=== PATIENT | female | born 1990 | race Caucasian/White ===

== ENCOUNTER 2017-03-04 14:35 | Emergency (ER) | payer BC ==
[2017-03-04 14:56] VITALS: BP 140/87
[2017-03-04] MEDS ORDERED: Ondansetron 4 MG Tab.DIS PO ONE (16:19)
[2017-03-04] MEDS ORDERED: Acetaminophen 325 MG Tab PO ONE (16:54)
--- NOTE | 2017-03-04 16:56 | EDM.PDOC ---
ED HPI GENERAL MEDICAL PROBLEM - General Chief Complaint: SKEIN TIER Problem Stated Complaint: CONTRACTIONS, 19-1/2 WKS PREG Time Seen by Provider: 03/04/17 16:14 Source of Information: Reports: Patient, Family, RN Notes Reviewed History Limitations: Reports: No Limitations - History of Present Illness INITIAL COMMENTS - FREE TEXT/NARRATIVE: 26-year-old female 1 para 0 presents emergency department day complaint of contractions she is estimated 19 weeks 4 days intrauterine she denies any vaginal bleeding no discharge she states the cramping abdominal discomfort happens anywhere between 8-10 minutes she does admit to not drinking well today has not taken any pain medications Abdomen Pain Score (Numeric/FACES): 7 - Related Data Allergies Allergy/AdvReac Type Severity Reaction Status Date / Time Penicillins Allergy Hives Verified 03/04/17 15:16 Home Meds: Home Meds Albuterol [Ventolin HFA] 2 puff .ROUTE ASDIRECTED 11/08/16 [History] Fluticasone/Salmeterol [Advair Diskus 100-50] 1 puff INH DAILY 11/08/16 [History ] Vit37/Iron/Folic Acid [Prenata] 1 tab PO DAILY 03/04/17 [History] Past Medical History Respiratory History: Reports: Asthma SKEIN TIER History: Reports: Other OB/BYN History: EDC July 27 2017 Social & Family History - Tobacco Use Smoking Status *Q: Never Smoker - Caffeine Use Caffeine Use: Reports: Soda - Recreational Drug Use Recreational Drug Use: No ED ROS GENERAL - Review of Systems Review Of Systems: See Below Constitutional: Reports: No Symptoms Respiratory: Reports: No Symptoms Cardiovascular: Reports: No Symptoms GI/Abdominal: Reports: Abdominal Pain, Nausea, Vomiting : Reports: No Symptoms Musculoskeletal: Reports: No Symptoms Skin: Reports: No Symptoms Neurological: Reports: No Symptoms ED EXAM - Physical Exam Exam: See Below Exam Limited By: No Limitations General Appearance: Alert, WD/WN, No Apparent Distress Respiratory/Chest: No Respiratory Distress, Lungs Clear, Normal Breath Sounds, No Accessory Muscle Use Cardiovascular: Regular Rate, Rhythm, No Murmur GI/Abdominal: Soft, Non-Tender Heart Tones: Present Heart Tones per Min: 140 Movement: Active Back Exam: No: CVA Tenderness (R), CVA Tenderness (L) Course - Vital Signs Last Recorded V/S: Last Vital Signs Temp 97.7 F 03/04/17 15:15 Pulse 100 03/04/17 15:15 Resp 16 03/04/17 15:15 BP 140/87 03/04/17 15:15 Pulse Ox 98 03/04/17 15:15 - Orders/Labs/Meds Orders: Active Orders 24 hr Category Date Time Status OB Ltd 1 or More Fetus [US] Stat Exams 03/04/17 17:56 Ordered CULTURE URINE [RM] Urgent Lab 03/04/17 18:14 Ordered Labs: Laboratory Tests 03/04/17 Range/Units 17:00 Urine Color Yellow Urine Appearance Cloudy Urine pH 6.0 (4.5-8.0) Ur Specific [place] 1.020 (1.008-1.030) Urine Protein Negative (NEGATIVE) mg/dL Urine Glucose (UA) Normal (NEGATIVE) mg/dL Urine Ketones 15 H (NEGATIVE) mg/dL Urine Occult Blood Negative (NEGATIVE) Urine Nitrite Negative (NEGATIVE) Urine Bilirubin Negative (NEGATIVE) Urine Urobilinogen Normal (NORMAL) mg/dL Ur Leukocyte Esterase Negative (NEGATIVE) Urine RBC 0-5 (0-5) Urine WBC 5-10 H (0-5) Ur Epithelial Cells Moderate Amorphous Sediment Few Urine Bacteria Few Urine Mucus Moderate Urine Other See note Urinalysis Comment Clue cells seen Meds: Medications Discontinued Medications Generic Name Dose Route Start Last Admin Trade Name Moshe PRN Reason Stop Dose Admin Acetaminophen 650 mg 03/04/17 16:54 03/04/17 16:59 Tylenol PO 03/04/17 16:55 650 mg NOW ONE Administration Ondansetron HCl 4 mg 03/04/17 16:19 03/04/17 16:26 Zofran Odt PO 03/04/17 16:20 4 mg ONETIME ONE Administration Departure - Departure Time of Disposition: 18:16 Disposition: Home, Self-Care 01 Condition: good Clinical Impression: Urinary tract infection Qualifiers: Urinary tract infection type: acute cystitis Hematuria presence: without hematuria Qualified Code(s): N30.00 - Acute cystitis without hematuria - Discharge Information Forms: ED Department Discharge Additional Instructions: Take full course of antibiotics, continue to push fluids, followup with your OB provider next week, call return to the emergency department worsening of symptoms - My Orders Last 24 Hours: My Active Orders 03/04/17 17:56 OB Ltd 1 or More Fetus [US] Stat 03/04/17 18:14 CULTURE URINE [RM] Urgent - Assessment/Plan Last 24 Hours: My Active Orders 03/04/17 17:56 OB Ltd 1 or More Fetus [US] Stat 03/04/17 18:14 CULTURE URINE [RM] Urgent Plan: Assessment Acuity = acute Site and laterality = urinary tract infection complicated patient who is 19 weeks 6 days intrauterine 1 para 0 Etiology = suspicious for bacterial cause Manifestations = intermittent uterine contractions Location of injury = home Lab values = urinalysis reveals 5-10 WBCs consistent with pyuria specific gravity is 1.02 consistent with intravascular volume depletion cultures pending ultrasound reveals cervical length 4.1 cm Plan Discussed case with OB on-call recommend follow up with her regular provider next week full course of antibiotics push fluids Patient was in agreement with the plan all questions were answered, they were instructed to return to the emergency department or call for worsening symptoms. This note was dictated using [employer] voice recognition software please call with any questions.
--- NOTE | 2017-03-05 09:09 | US ---
OB Transvaginal HISTORY: contractions FINDINGS: Limited transabdominal study was obtained to assess cervical length. The cervix is closed measuring 4.2 cm in length. There is no funneling of the internal os. No significant change in cervi kale length is seen with fundal pressure. IMPRESSION: Cervical length as above. Report was given to Dr. Officer at the time of the exam.
== END 2017-03-04 18:31 | disposition home or self-care (01) ==
LOC: JP.ED 14:35
DX: N30.00 Acute cystitis without hematuria (principal); J45.909 Unspecified asthma, uncomplicated; Z88.0 Allergy status to penicillin; Z79.899 Other long term (current) drug therapy
CPT/HCPCS: 76817; 81001; 87086; 99284; A9270

== ENCOUNTER 2017-07-16 23:31 | Inpatient (IN) | payer BC ==
[2017-07-17] MEDS ORDERED: Zolpidem 5 MG Tab PO ONE (01:17)
[2017-07-17] MEDS ORDERED: Sodium Chloride 0.9% 10 ML Syringe FLUSH PRN ×2 (01:18→07:09)
[2017-07-17] MEDS ORDERED: Ondansetron 4 MG/2 ML SDV IV PRN (07:20)
[2017-07-17] MEDS ORDERED: fentaNYL 100 MCG/2 ML SDV IVPUSH PRN (07:20)
[2017-07-17] MEDS ORDERED: Calcium Carbonate 500 MG Tab.Chew PO PRN (07:20)
[2017-07-17] MEDS ORDERED: Acetaminophen 325 MG Tab PO PRN (07:20)
--- NOTE | 2017-07-17 07:33 | PCM.LDHP ---
L&D History of Present Illness - General Date of Service: 07/17/17 Admit Problem/Dx: Patient Status Order with Admit Dx/Problem 07/17/17 01:03 Patient Status [ADT] Routine Admission Diagnosis/Problem Admission Diagnosis/Problem - Related Data Allergies/Adverse Reactions: Allergies Allergy/AdvReac Type Severity Reaction Status Date / Time Penicillins Allergy Hives Verified 03/04/17 15:16 Home Medications: Home Meds Albuterol [Ventolin HFA] 2 puff .ROUTE ASDIRECTED 11/08/16 [History] Fluticasone/Salmeterol [Advair Diskus 100-50] 1 puff INH DAILY 11/08/16 [History ] Vit37/Iron/Folic Acid [Prenata] 1 tab PO DAILY 03/04/17 [History] FLUoxetine [PROzac] 10 mg PO DAILY 06/01/17 [History] Ferrous Sulfate [Iron] 325 mg PO DAILY 07/17/17 [History] Past Medical History Respiratory History: Reports: Asthma [employer] History: Reports: Other OB/BYN History: EDC July 27 2017 Psychiatric History: Reports: Depression - Past Surgical History Respiratory Surgical History: Reports: None Social & Family History - Family History Family Medical History: Noncontributory - Tobacco Use Smoking Status *Q: Never Smoker Second Hand Smoke Exposure: No - Caffeine Use Caffeine Use: Reports: Soda Other Caffeine Use: 1 can daily - Recreational Drug Use Recreational Drug Use: No H&P Review of Systems - Review of Systems: Review Of Systems: See Below General: Reports: No Symptoms HEENT: Reports: No Symptoms Pulmonary: Reports: No Symptoms Cardiovascular: Reports: No Symptoms Gastrointestinal: Reports: No Symptoms Genitourinary: Reports: No Symptoms Musculoskeletal: Reports: No Symptoms Skin: Reports: No Symptoms Psychiatric: Reports: No Symptoms Neurological: Reports: No Symptoms Hematologic/Lymphatic: Reports: No Symptoms Immunologic: Reports: No Symptoms L&D Exam - Exam Exam: See Below - Vital Signs Vital Signs: Last Vital Signs Temp 36.6 C 07/17/17 06:43 Pulse 93 07/17/17 04:00 Resp 18 07/17/17 06:43 BP 109/62 07/17/17 04:00 Pulse Ox 94 L 07/17/17 04:00 Weight: 113.398 kg - OB Specific Contraction Duration (sec): 40-50 Contraction Frequency (min): 1-4 Contraction Intensity: Mild Presentation: Vertex - Townsend Score Townsend Score Cervix Position: Posterior Townsend Score Consistency: Soft Townsend Score Effacement: 51-70% Townsend Score Dilation: 1-2 cm Townsend Score 's Station: -3 Townsend Score Total: 5 - Exam General: Alert, Oriented HEENT: PERRLA, Conjunctiva Clear, EACs Clear, EOMI, Hearing Intact, Mucosa Moist & [place], Nares Patent, Normal Nasal Septum, Posterior Pharynx Clear, TMs Clear Neck: Supple, Trachea Midline Lungs: Clear to Auscultation, Normal Respiratory Effort Cardiovascular: Regular Rate, Regular Rhythm GI/Abdominal Exam: Normal Bowel Sounds, Soft, Non-Tender, No Organomegaly, No Distention, No Abnormal Bruit, No Mass, Pelvis Stable Rectal Exam: Normal Exam, Normal Rectal Tone Genitourinary: Normal external exam, Normal bimanual exam, Normal speculum exam Back Exam: Normal Inspection, Full Range of Motion Extremities: Normal Inspection, Normal Range of Motion, Non-Tender, No Pedal Edema, Normal Capillary Refill Skin: Warm, Dry, Intact Neurological: Cranial Nerves Intact, Reflexes Equal Bilateral DTR: 2+: Patella (L), Patella (R) Psychiatric: Alert, Normal Affect, Normal Mood, Other (history of depression new with this ) - Patient Data Lab Results Last 24 hrs: Laboratory Results - last 24 hr 07/16/17 07/16/17 07/17/17 Range/Units 23:44 23:44 00:26 WBC (4.5-11.0) K/uL RBC (3.30-5.50) M/uL Hgb (12.0-15.0) g/dL Hct (36.0-48.0) % MCV (80-98) fL MCH (27-31) pg MCHC (32-36) % Plt Count (150-400) K/uL Neut % (Auto) (36-66) % Lymph % (Auto) (24-44) % [place] % (Auto) (2-6) % Eos % (Auto) (2-4) % Baso % (Auto) (0-1) % Sodium (140-148) mmol/L Potassium (3.6-5.2) mmol/L Chloride (100-108) mmol/L Carbon Dioxide (21-32) mmol/L Anion Gap (5.0-14.0) mmol/L BUN (7-18) mg/dL Creatinine (0.6-1.0) mg/dL Est Cr Clr Drug Dosing mL/min Estimated GFR (MDRD) (>60) Glucose (74-106) mg/dL Calcium (8.5-10.1) mg/dL Total Bilirubin (0.2-1.0) mg/dL AST (15-37) U/L ALT (12-78) U/L Alkaline Phosphatase (46-116) U/L Total Protein (6.4-8.2) g/dL Albumin (3.4-5.0) g/dL Globulin (2.3-3.5) g/dL Albumin/Globulin Ratio (1.2-2.2) Urine Color Yellow Urine Appearance Clear Urine pH 6.5 (4.5-8.0) Ur Specific [place] 1.015 (1.008-1.030) Urine Protein Trace (NEGATIVE) mg/dL Urine Glucose (UA) Normal (NEGATIVE) mg/dL Urine Ketones Negative (NEGATIVE) mg/dL Urine Occult Blood Negative (NEGATIVE) Urine Nitrite Negative (NEGATIVE) Urine Bilirubin Negative (NEGATIVE) Urine Urobilinogen Normal (NORMAL) mg/dL Ur Leukocyte Esterase Negative (NEGATIVE) Urine RBC Not seen (0-5) Urine WBC 0-5 (0-5) Ur Epithelial Cells Many Amorphous Sediment Not seen Urine Bacteria Not seen Urine Mucus Few Membrane Rupture Positive H (NEGATIVE) Urine Opiates Screen Negative (NEGATIVE) Ur Oxycodone Screen Negative (NEGATIVE) Urine Methadone Screen Negative (NEGATIVE) Ur Propoxyphene Screen Negative (NEGATIVE) Ur Barbiturates Screen Negative (NEGATIVE) Ur Tricyclics Screen Negative (NEGATIVE) Ur Phencyclidine Scrn Negative (NEGATIVE) Ur Amphetamine Screen Negative (NEGATIVE) U Methamphetamines Scrn Negative (NEGATIVE) Urine MDMA Screen Negative (NEGATIVE) U Benzodiazepines Scrn Negative (NEGATIVE) U Cocaine Metab Screen Negative (NEGATIVE) U Marijuana (THC) Screen Negative (NEGATIVE) 07/17/17 07/17/17 Range/Units 01:28 01:28 WBC 12.1 H (4.5-11.0) K/uL RBC 4.45 (3.30-5.50) M/uL Hgb 11.7 L (12.0-15.0) g/dL Hct 36.6 (36.0-48.0) % MCV 82 (80-98) fL MCH 26 L (27-31) pg MCHC 32 (32-36) % Plt Count 292 (150-400) K/uL Neut % (Auto) 60 (36-66) % Lymph % (Auto) 29 (24-44) % [place] % (Auto) 10 H (2-6) % Eos % (Auto) 1 L (2-4) % Baso % (Auto) 0 (0-1) % Sodium 140 (140-148) mmol/L Potassium 4.3 (3.6-5.2) mmol/L Chloride 105 (100-108) mmol/L Carbon Dioxide 24 (21-32) mmol/L Anion Gap 11.1 (5.0-14.0) mmol/L BUN 8 (7-18) mg/dL Creatinine 0.7 (0.6-1.0) mg/dL Est Cr Clr Drug Dosing 109.59 mL/min Estimated GFR (MDRD) > 60 (>60) Glucose 99 (74-106) mg/dL Calcium 8.3 L (8.5-10.1) mg/dL Total Bilirubin 0.2 (0.2-1.0) mg/dL AST 18 (15-37) U/L ALT 23 (12-78) U/L Alkaline Phosphatase 114 D (46-116) U/L Total Protein 6.3 L (6.4-8.2) g/dL Albumin 2.4 L (3.4-5.0) g/dL Globulin 3.9 H (2.3-3.5) g/dL Albumin/Globulin Ratio 0.6 L (1.2-2.2) Urine Color Urine Appearance Urine pH (4.5-8.0) Ur Specific [place] (1.008-1.030) Urine Protein (NEGATIVE) mg/dL Urine Glucose (UA) (NEGATIVE) mg/dL Urine Ketones (NEGATIVE) mg/dL Urine Occult Blood (NEGATIVE) Urine Nitrite (NEGATIVE) Urine Bilirubin (NEGATIVE) Urine Urobilinogen (NORMAL) mg/dL Ur Leukocyte Esterase (NEGATIVE) Urine RBC (0-5) Urine WBC (0-5) Ur Epithelial Cells Amorphous Sediment Urine Bacteria Urine Mucus Membrane Rupture (NEGATIVE) Urine Opiates Screen (NEGATIVE) Ur Oxycodone Screen (NEGATIVE) Urine Methadone Screen (NEGATIVE) Ur Propoxyphene Screen (NEGATIVE) Ur Barbiturates Screen (NEGATIVE) Ur Tricyclics Screen (NEGATIVE) Ur Phencyclidine Scrn (NEGATIVE) Ur Amphetamine Screen (NEGATIVE) U Methamphetamines Scrn (NEGATIVE) Urine MDMA Screen (NEGATIVE) U Benzodiazepines Scrn (NEGATIVE) U Cocaine Metab Screen (NEGATIVE) U Marijuana (THC) Screen (NEGATIVE) Result Diagrams: 07/17/17 01:28 07/17/17 01:28 - Problem List (1) Premature rupture of membranes SNOMED Code(s): 45884419 ICD Code: O42.90 - NADIR ROM, 7TH0 BETW RUPT & ONST LABR, UNSP WEEKS OF GEST Status: Acute Current Visit: Yes Qualifiers: PROM gestational age: full term (2) SNOMED Code(s): 70332792 ICD Code: Z33.1 - STATE, INCIDENTAL Status: Acute Current Visit : No Qualifiers: Weeks of gestation: 38 weeks Qualified Code(s): Z3A.38 - 38 weeks gestation of Problem List Initiated/Reviewed/Updated: Yes Orders Last 24hrs: Active Orders 24 hr Category Date Time Status Patient Status [ADT] Routine ADT 07/17/17 01:03 Ordered Communication Order [RC] ASDIRECTED Care 07/17/17 07:09 Ordered Heart Tones [RC] PER UNIT ROUTINE Care 07/17/17 07:09 Ordered Notify Provider Vital Signs [RC] PRN Care 07/17/17 01:03 Ordered Notify Provider [RC] PRN Care 07/17/17 07:09 Ordered OB Check [OM.PC] Click to Edit Care 07/16/17 23:44 Ordered Peripheral IV Care [RC] . DIRECTED Care 07/17/17 01:20 Active Up ad Nathalie [RC] ASDIRECTED Care 07/17/17 07:09 Ordered Up to Chair [RC] QID Care 07/17/17 07:09 Ordered Vital Signs [RC] PER UNIT ROUTINE Care 07/17/17 07:09 Ordered OB Ltd 1 or More Fetus [US] Routine Exams 07/17/17 01:18 Ordered Acetaminophen [Tylenol] Med 07/17/17 07:20 Ordered 650 mg PO Q4H PRN Calcium Carbonate [Tums] Med 07/17/17 07:20 Ordered 1,000 mg PO Q2HR PRN Ondansetron [Zofran] Med 07/17/17 07:20 Ordered 4 mg IV Q4H PRN Sodium Chloride 0.9% [Saline Flush] Med 07/17/17 01:18 Active 10 ml FLUSH ASDIRECTED PRN Sodium Chloride 0.9% [Saline Flush] Med 07/17/17 07:09 Ordered 10 ml FLUSH ASDIRECTED PRN fentaNYL [Sublimaze] Med 07/17/17 07:20 Ordered 100 mcg IVPUSH Q1H PRN Peripheral IV Insertion Adult [OM.PC] Routine Oth 07/17/17 01:18 Ordered Saline Lock Insert [OM.PC] Routine Oth 07/17/17 07:09 Ordered Resuscitation Status Routine Resus Stat 07/17/17 07:09 Ordered Medication Orders Acetaminophen (Tylenol) 650 mg PO Q4H PRN PRN Reason: Pain (Mild 1-3) and fever Calcium Carbonate/Glycine (Tums) 1,000 mg PO Q2HR PRN PRN Reason: Indigestion Fentanyl (Sublimaze) 100 mcg IVPUSH Q1H PRN PRN Reason: Pain (moderate 4-6) Ondansetron HCl (Zofran) 4 mg IV Q4H PRN PRN Reason: Nausea/Vomiting Sodium Chloride (Saline Flush) 10 ml FLUSH ASDIRECTED PRN PRN Reason: Keep Vein Open Sodium Chloride (Saline Flush) 10 ml FLUSH ASDIRECTED PRN PRN Reason: Keep Vein Open Assessment/Plan Comment:: 07/17/2017 27 yo came in last night after PROM at home at about 2300-amnisure positive SVE at that time was FT/50 Contractions were irregular FHTs were a category one Patient was not in pain Plan- Admit patient Ambien 10mg for sleep Start IV Do needed labs Monitor FHTs Monitor for active labor Up and about as tolerated Pain management per patient request Anticipate and plan for a vaginal delivery Will augment if no active labor by am Patient may eat regular diet
--- NOTE | 2017-07-17 07:37 | PCM.PNLD ---
Labor Progress Note - VS & Meds Vital Signs: Last Vital Signs Temp 36.6 C 07/17/17 06:43 Pulse 93 07/17/17 04:00 Resp 18 07/17/17 06:43 BP 109/62 07/17/17 04:00 Pulse Ox 94 L 07/17/17 04:00 Active Medications: Current Medications Acetaminophen (Tylenol) 650 mg PO Q4H PRN PRN Reason: Pain (Mild 1-3) and fever Calcium Carbonate/Glycine (Tums) 1,000 mg PO Q2H PRN PRN Reason: Indigestion Fentanyl (Sublimaze) 100 mcg IVPUSH Q1H PRN PRN Reason: Pain (moderate 4-6) Ondansetron HCl (Zofran) 4 mg IV Q4H PRN PRN Reason: Nausea/Vomiting Sodium Chloride (Saline Flush) 10 ml FLUSH ASDIRECTED PRN PRN Reason: Keep Vein Open Discontinued Medications Zolpidem Tartrate (Ambien) 10 mg PO ONETIME ONE Stop: 07/17/17 01:18 Last Admin: 07/17/17 01:37 Dose: 10 mg - Uterine Contractions Uterine Monitoring Mode: External [place] Contraction Frequency (min): 1-4 Contraction Duration (sec): 40-50 Contraction Intensity: Mild Uterine Resting Tone: Soft - Vaginal Exam Dilation (cm): 1 Effacement (Percent): 60 Station: -3 Cervical Position: Midposition Sterile Vaginal Exam Performed By: Ora Kumar - Labor Progress (Free Text) Labor Progress: 07/17/2017 SVE-1/60/-3 Contractions irregular FHTs category one Patient slept most of night since admit No need for pain control Plan- Will US baby for size and position for possible macrocosmic Will initiate Pitocin per protocol or review options if macrocosmic Patient can eat regular diet after verify not macrocosmic Pain management per patient request
--- NOTE | 2017-07-17 07:51 | PCM.PNLD ---
Labor Progress Note - VS & Meds Vital Signs: Last Vital Signs Temp 36.6 C 07/17/17 06:43 Pulse 93 07/17/17 04:00 Resp 18 07/17/17 06:43 BP 109/62 07/17/17 04:00 Pulse Ox 94 L 07/17/17 04:00 Active Medications: Current Medications Acetaminophen (Tylenol) 650 mg PO Q4H PRN PRN Reason: Pain (Mild 1-3) and fever Calcium Carbonate/Glycine (Tums) 1,000 mg PO Q2H PRN PRN Reason: Indigestion Fentanyl (Sublimaze) 100 mcg IVPUSH Q1H PRN PRN Reason: Pain (moderate 4-6) Ondansetron HCl (Zofran) 4 mg IV Q4H PRN PRN Reason: Nausea/Vomiting Sodium Chloride (Saline Flush) 10 ml FLUSH ASDIRECTED PRN PRN Reason: Keep Vein Open Discontinued Medications Zolpidem Tartrate (Ambien) 10 mg PO ONETIME ONE Stop: 07/17/17 01:18 Last Admin: 07/17/17 01:37 Dose: 10 mg - Uterine Contractions Uterine Monitoring Mode: External [place] Contraction Frequency (min): 1-4 Contraction Duration (sec): 40-50 Contraction Intensity: Mild Uterine Resting Tone: Soft - Vaginal Exam Dilation (cm): 1 Effacement (Percent): 60 Station: -3 Cervical Position: Midposition Sterile Vaginal Exam Performed By: Ora Kumar - Labor Progress (Free Text) Labor Progress: 07/17/2017 US states EFW of approx 8lbs Will proceed with augmentation with pitocin per protocol
[2017-07-17] MEDS ORDERED: Lactated Ringers 1,000 ML IV ONE (08:00)
--- NOTE | 2017-07-17 09:20 | US ---
INDICATION: check size and position of fetus COMPARISON: None FINDINGS: Single live IUP in cephalic position with heart rate of 128 BPM. Unable to visualize cervix. Oligohydramnios, with VASHTI at 5.5 cm. Anterior placenta. movement demonstrated.
--- NOTE | 2017-07-17 14:51 | PCM.PNLD ---
Labor Progress Note - VS & Meds Vital Signs: Last Vital Signs Temp 36.0 C 07/17/17 14:00 Pulse 78 07/17/17 14:00 Resp 15 07/17/17 14:00 BP 108/58 L 07/17/17 14:00 Pulse Ox 97 07/17/17 14:00 Active Medications: Current Medications Acetaminophen (Tylenol) 650 mg PO Q4H PRN PRN Reason: Pain (Mild 1-3) and fever Calcium Carbonate/Glycine (Tums) 1,000 mg PO Q2H PRN PRN Reason: Indigestion Fentanyl (Sublimaze) 100 mcg IVPUSH Q1H PRN PRN Reason: Pain (moderate 4-6) Last Admin: 07/17/17 14:42 Dose: 100 mcg Oxytocin/Sodium Chloride (Pitocin In Ns 20 Units/1,000 Ml) 20 unit in 1,000 mls @ 6 mls/hr IV TITRATE MARTI; 2 MUNITS/MIN PRN Reason: Protocol Last Titration: 07/17/17 14:00 Dose: 11 munits/min, 33 mls/hr Ondansetron HCl (Zofran) 4 mg IV Q4H PRN PRN Reason: Nausea/Vomiting Last Admin: 07/17/17 14:42 Dose: 4 mg Sodium Chloride (Saline Flush) 10 ml FLUSH ASDIRECTED PRN PRN Reason: Keep Vein Open Discontinued Medications Lactated Ringer's (Ringers, Lactated) 1,000 mls @ 999 mls/hr IV .BOLUS ONE Stop: 07/17/17 09:00 Last Infusion: 07/17/17 14:25 Dose: 999 mls/hr Zolpidem Tartrate (Ambien) 10 mg PO ONETIME ONE Stop: 07/17/17 01:18 Last Admin: 07/17/17 01:37 Dose: 10 mg - Uterine Contractions Uterine Monitoring Mode: External [place] Contraction Frequency (min): 2-4 Contraction Duration (sec): 60 Contraction Intensity: Mild to Moderate Uterine Resting Tone: Soft - Vaginal Exam Dilation (cm): 1 Effacement (Percent): 75 Station: -2 Cervical Position: Midposition Sterile Vaginal Exam Performed By: Ora Kumar - Labor Progress (Free Text) Labor Progress: 07/17/2017 SVE unchanged Pitocin still going per protocol Patient feels contractions Contractions every 2-4 minutes FHTs category one Leaking clear fluid Plan- Continue to monitor for active labor Continue to monitor FHTs Continue Pitocin per protocol Pain management per patient request Anticipate and plan for a vaginal delivery
--- NOTE | 2017-07-17 14:56 | PCM.PNLD ---
Labor Progress Note - VS & Meds Vital Signs: Last Vital Signs Temp 36.0 C 07/17/17 14:00 Pulse 78 07/17/17 14:00 Resp 15 07/17/17 14:00 BP 108/58 L 07/17/17 14:00 Pulse Ox 97 07/17/17 14:00 Active Medications: Current Medications Acetaminophen (Tylenol) 650 mg PO Q4H PRN PRN Reason: Pain (Mild 1-3) and fever Calcium Carbonate/Glycine (Tums) 1,000 mg PO Q2H PRN PRN Reason: Indigestion Fentanyl (Sublimaze) 100 mcg IVPUSH Q1H PRN PRN Reason: Pain (moderate 4-6) Last Admin: 07/17/17 14:42 Dose: 100 mcg Oxytocin/Sodium Chloride (Pitocin In Ns 20 Units/1,000 Ml) 20 unit in 1,000 mls @ 6 mls/hr IV TITRATE MARTI; 2 MUNITS/MIN PRN Reason: Protocol Last Titration: 07/17/17 14:00 Dose: 11 munits/min, 33 mls/hr Ondansetron HCl (Zofran) 4 mg IV Q4H PRN PRN Reason: Nausea/Vomiting Last Admin: 07/17/17 14:42 Dose: 4 mg Sodium Chloride (Saline Flush) 10 ml FLUSH ASDIRECTED PRN PRN Reason: Keep Vein Open Discontinued Medications Lactated Ringer's (Ringers, Lactated) 1,000 mls @ 999 mls/hr IV .BOLUS ONE Stop: 07/17/17 09:00 Last Infusion: 07/17/17 14:25 Dose: 999 mls/hr Zolpidem Tartrate (Ambien) 10 mg PO ONETIME ONE Stop: 07/17/17 01:18 Last Admin: 07/17/17 01:37 Dose: 10 mg - Uterine Contractions Uterine Monitoring Mode: External [place] Contraction Frequency (min): 2-4 Contraction Duration (sec): 60 Contraction Intensity: Mild to Moderate Uterine Resting Tone: Soft - Vaginal Exam Dilation (cm): 1 Effacement (Percent): 75 Station: -2 Cervical Position: Midposition Sterile Vaginal Exam Performed By: Ora Kumar - Labor Progress (Free Text) Labor Progress: 07/17/2017 SVE unchanged Patient now tearful and states she is done Patient requesting epidural Patient also nauseated and vomiting Contractions every 1.5-3min FHTs category one Plan- Continue to monitor for cervical change Continue to monitor FHTs Epidural as patient requests Zofran for nausea Will initiate antibiotics for prolonged rupture of membranes Plan and anticipate a vaginal delivery
[2017-07-17] MEDS ORDERED: Clindamycin Phosphate 900 MG in Sodium Chloride 0.9% 100 ML IV SCH (15:30)
[2017-07-17] MEDS ORDERED: Oxytocin 10 Units/1 ML SDV ONE ×2 (16:45→16:53)
[2017-07-17] MEDS ORDERED: cefOXitin 1 GM Vial ONE (16:46)
--- NOTE | 2017-07-17 16:48 | PCM.PNLD ---
Labor Progress Note - VS & Meds Vital Signs: Last Vital Signs Temp 36.0 C 07/17/17 14:00 Pulse 78 07/17/17 14:00 Resp 15 07/17/17 14:00 BP 108/58 L 07/17/17 14:00 Pulse Ox 97 07/17/17 14:00 Active Medications: Current Medications Acetaminophen (Tylenol) 650 mg PO Q4H PRN PRN Reason: Pain (Mild 1-3) and fever Calcium Carbonate/Glycine (Tums) 1,000 mg PO Q2H PRN PRN Reason: Indigestion Fentanyl (Sublimaze) 100 mcg IVPUSH Q1H PRN PRN Reason: Pain (moderate 4-6) Last Admin: 07/17/17 14:42 Dose: 100 mcg Oxytocin/Sodium Chloride (Pitocin In Ns 20 Units/1,000 Ml) 20 unit in 1,000 mls @ 6 mls/hr IV TITRATE MARTI; 2 MUNITS/MIN PRN Reason: Protocol Last Titration: 07/17/17 14:00 Dose: 11 munits/min, 33 mls/hr Clindamycin Phosphate 900 mg/ (Sodium Chloride) 106 mls @ 200 mls/hr IV Q8H MARTI Last Admin: 07/17/17 15:31 Dose: 200 mls/hr Ondansetron HCl (Zofran) 4 mg IV Q4H PRN PRN Reason: Nausea/Vomiting Last Admin: 07/17/17 14:42 Dose: 4 mg Sodium Chloride (Saline Flush) 10 ml FLUSH ASDIRECTED PRN PRN Reason: Keep Vein Open Discontinued Medications Lactated Ringer's (Ringers, Lactated) 1,000 mls @ 999 mls/hr IV .BOLUS ONE Stop: 07/17/17 09:00 Last Infusion: 07/17/17 14:25 Dose: 999 mls/hr Zolpidem Tartrate (Ambien) 10 mg PO ONETIME ONE Stop: 07/17/17 01:18 Last Admin: 07/17/17 01:37 Dose: 10 mg - Uterine Contractions Uterine Monitoring Mode: External [place] Contraction Frequency (min): 2-3 Contraction Duration (sec): 30 Contraction Intensity: Strong Uterine Resting Tone: Soft - Vaginal Exam Dilation (cm): 1 Effacement (Percent): 75 Station: -2 Cervical Position: Midposition Sterile Vaginal Exam Performed By: Ora Kumar - Labor Progress (Free Text) Labor Progress: 07/17/2017 SVE remains unchanged Fluid noted to be more yellow and odorous Patient not tolerating pain still requesting epidural Antibiotics given Contractions every 1.5-3 minutes FHTs remain a category one Plan- Will proceed to a primary section for failure to progress, and prolonged rupture of membranes Dr. Delgadillo notified and resuming care Will stop pitocin at this time
[2017-07-17] MEDS ORDERED: cefOXitin 2 GM Vial ONE (16:53)
[2017-07-17] MEDS ORDERED: ePHEDrine 50 MG/ML SDV ONE (16:53)
[2017-07-17] MEDS ORDERED: Lactated Ringers 1,000 ML ONE ×2 (17:34)
[2017-07-17] MEDS ORDERED: Ondansetron 4 MG/2 ML SDV ONE (17:46)
[2017-07-17] MEDS ORDERED: Meropenem 500 MG SDV ONE (17:55)
[2017-07-17] MEDS ORDERED: HYDROmorphone/Normal Saline 15 MG/30 ML PCA IV SCH (18:45)
[2017-07-17] MEDS ORDERED: Naloxone 0.4 MG/ML SDV IV PRN (19:40)
[2017-07-17] MEDS ORDERED: hydrOXYzine HCl 100 MG/2 ML SDV IM PRN (19:42)
[2017-07-17] MEDS ORDERED: hydrOXYzine HCl 25 MG Tab PO PRN (19:42)
[2017-07-17] MEDS: cefOXitin 2 GM in Sodium Chloride 0.9% 50 ML IV SCH (23:15)
[2017-07-18] MEDS: Lactated Ringers 1,000 ML IV SCH ×2 (00:50→07:10)
[2017-07-18] MEDS: cefOXitin 2 GM in Sodium Chloride 0.9% 50 ML IV SCH ×2 (05:37→10:50)
[2017-07-18] MEDS ORDERED: Lactated Ringers 1,000 ML IV SCH (09:15)
[2017-07-18] MEDS: Docusate Sodium 100 MG Cap PO SCH ×2 (10:50→21:17)
[2017-07-18] MEDS: Ibuprofen 600 MG Tab PO PRN (10:50)
[2017-07-18] MEDS: Acetaminophen/HYDROcodone 325-5 MG Tab PO PRN ×2 (16:20→21:14)
[2017-07-18] MEDS ORDERED: Lanolin 100% Cream 40 GM Tube TOP PRN (23:26)
[2017-07-19] MEDS: Ibuprofen 600 MG Tab PO PRN ×3 (02:46→21:49)
[2017-07-19] MEDS: Docusate Sodium 100 MG Cap PO SCH ×2 (09:31→20:13)
--- NOTE | 2017-07-19 09:36 | PN ---
DATE OF SERVICE: 07/18/2017 The patient is postop day #1 from a section. Overall, she has done well postoperatively. Urine output has been good. Hemoglobin was 9.6 this morning, which would be an expected range. The baby is doing well also. The plan will be to back down the IV rate. We will start her on full liquid diet and add some Colace to the regimen, and discontinue the Gage catheter. We will advance her to oral pain medication most likely tomorrow. Zak Delgadillo MD /[id number]
--- NOTE | 2017-07-19 09:45 | PN ---
DATE OF SERVICE: 07/19/2017 The patient has been afebrile with stable vital signs. She is moved up to regular diet and oral pain medication. We will keep her one more day, begin the shower today. JESSICA drain is putting out small amount, but that would be expected. She will likely be discharged home tomorrow after the circumcision has been completed. Zak Delgadillo MD /[id number]
[2017-07-20] MEDS: Acetaminophen/HYDROcodone 325-5 MG Tab PO PRN (08:01)
[2017-07-20] MEDS: Docusate Sodium 100 MG Cap PO SCH (08:01)
[2017-07-20] MEDS: Ibuprofen 600 MG Tab PO PRN (08:02)
[2017-07-20 08:09] VITALS: BP 122/73
[2017-07-20] MEDS ORDERED: FLU Vacc QS 2017-18 (36mos UP)/PF 60 MCG/0.5 ML Syringe IM ONE (09:00)
--- NOTE | 2017-07-21 12:15 | DISCH ---
ADMISSION DIAGNOSES: 1. Term . 2. Premature rupture of membranes. DISCHARGE DIAGNOSES: section, term with full-term placenta. DATE OF SURGERY: 07/17/2017. HISTORY: Chris White is a 27-year-old female at term . She had premature rupture of membranes. After preoperative evaluation and discussion of possible risks and possible complications, she elected to proceed with a primary for failure to progress and prolonged rupture of membranes. Date of surgery was 07/17/2017, with delivery of viable baby boy. HOSPITAL COURSE: Chris was admitted on 07/17/2017 with rupture of membranes. She had failure to progress labor and was elected to have a on 07/17/2017. On postoperative day #1, urine output was good. Hemoglobin was 9.6. IV rate was turned down. She was started on a full-liquid diet and Colace, and Gage catheter was discontinued. On postoperative day #2, she was afebrile. Regular diet. Activity was good. Vital signs were stable. On postoperative day #3, she was able to be discharged to home. JESSICA drain was discontinued and Aquacel dressing was discontinued. She had adequate postoperative teaching. PHYSICAL EXAMINATION: GENERAL: Chris White is a pleasant 27-year-old female. VITAL SIGNS: Height is 5 feet 5 inches. Weight is 250 pounds. TPR is 98.2, pulse is 103, respiratory rate is 18, and blood pressure is 120/71. HEENT: Negative. NECK: Supple. HEART: Regular rate and rhythm. LUNGS: Clear. ABDOMEN: Soft and minimally tender. At the time of exam, Aquacel dressing remained on and JESSICA drain was intact. Both of these will be removed prior to discharge. EXTREMITIES: Without peripheral edema. No calf tenderness. DISPOSITION: Discharged to home. CONDITION: Stable and improving. FOLLOWUP APPOINTMENT: Mariah Lundberg PA-C, on 07/27/2017 at 11 a.m. NEW PRESCRIPTIONS: 1. Tylenol 650 mg q.4 hours p.r.n. pain. 2. [place] 5/325 mg one to two every 4 hours p.r.n. pain, #30. 3. Tums 1000 mg oral every two hours p.r.n. heartburn. 4. Colace 100 mg oral twice daily, #60. 5. Ibuprofen 600 mg q.6 hours p.r.n. pain, #56. 6. Lanolin 40 g topical, use as directed for breast soreness. She is to resume her home medications of: 1. Prozac 10 mg daily. 2. Ferrous sulfate 325 mg oral daily. 3. Advair Diskus 100/50 one puff inhalation daily. DIET AFTER DISCHARGE: Usual diet as tolerated. Drink eight to ten glasses of water a day. ACTIVITY AFTER DISCHARGE: As tolerated. No lifting more than car seat baby for six weeks. Driving, do not drive while on pain medication. Shower/bathing, may shower. Notify provider if any fever, increased pain, nausea, or vomiting. Keep site clean and dry. SPECIAL INSTRUCTIONS: 1. Use incentive spirometer ten times every hour while awake. 2. She is to see Ora Kumar, certified nurse dye box operator as directed.
--- NOTE | 2017-07-22 14:04 | OR ---
DATE OF PROCEDURE: 07/17/2017 PREOPERATIVE DIAGNOSIS: Term with failure to progress. POSTOPERATIVE DIAGNOSIS: Term with failure to progress. OPERATIVE PROCEDURE: section (10204). ANESTHESIA: Spinal. SEX OFFENDER TREATMENT PROFESSIONAL: Ora Kumar CNM INDICATION FOR PROCEDURE: This is a 27-year-old presenting at term with her first . The patient has undergone induction and has had ruptured membranes for extended period at this time, and she is not showing any dilation beyond a fingertip. Given this my decision made to proceed with a section. Potential risks of the procedure were reviewed with the patient and including bleeding, infection, injury to the mother and/or baby as well as the remote possibility of cardiopulmonary, septic or hemorrhagic complications leading to were discussed, and the patient wishes to proceed. DETAILS OF PROCEDURE: The patient was taken to the operating room and placed in the supine position. After spinal anesthetic had been placed, a roll was placed underneath the right hip to offload the vena cava and Gage catheter was inserted. The abdomen was then prepped and draped. A transverse-type Pfannenstiel incision was made and carried down through the skin and subcutaneous tissue. This was then continued through the rectus sheath. Subrectus sheath flaps were then raised superiorly and inferiorly, and midline peritoneum divided. Peritoneal reflection of bladder on the uterus was then divided and reflected downward. A transverse lower uterine segment incision was made and a viable male was delivered through a vertex presentation. The baby's head was lying with the right ear facing anteriorly. The cord was clamped and cut, and routine care given off the field per Ora Kumar CNM. The scores at 1 and 5 minutes were 9 and 10 respectively. The patient was given IV and intrauterine oxytocin and IV cefoxitin. Good uterine contractions were noted. The placenta and membranes were delivered. The uterus was then closed with 2 layers of 2-0 Vicryl stitch as was the peritoneal reflection of bladder on the uterus. At that point, the midline peritoneum musculature was approximated with #2 Vicryl stitch as was the anterior rectus sheath. The subcutaneous tissue was quite thick. At this point, it was felt best to place a 10-Nigerian round Ben-Johnson drain in that area. The subcutaneous tissue was then approximated with a running 3-0 Vicryl stitch and the drain was sutured to the skin with a 3-0 Vicryl stitch. The patient was taken to the recovery room in a satisfactory condition. There were no other complications. Zak Delgadillo MD /[id number]
== END 2017-07-20 10:00 | disposition home or self-care (01) | DRG 540 ==
LOC: JP.OBCHECK 23:31 → JP.OB 07-17 01:15 → OBSVTOIN 07-17 17:37 → JP.MS 07-17 21:55
PROVIDERS: ADMIT Advanced Practice Midwife; ATTEND Surgery
PROC: 10D00Z1 Extraction of Products of Conception, Low, Open Approach (ICD-10-PCS; principal; 2017-07-17)
PROC: 3E033VJ Introduction of Other Hormone into Peripheral Vein, Percutaneous Approach (ICD-10-PCS; principal; 2017-07-17)
PROC: 30233S1 Transfusion of Nonautologous Globulin into Peripheral Vein, Percutaneous Approach (ICD-10-PCS; 2017-07-18)
DX: O42.90 Premature rupture of membranes, unspecified as to length of time between rupture and onset of labor, unspecified weeks of gestation (principal); O63.9 Long labor, unspecified; Z3A.38 38 weeks gestation of pregnancy; Z37.0 Single live birth; O61.0 Failed medical induction of labor; O62.2 Other uterine inertia; Z88.0 Allergy status to penicillin; O99.343 Other mental disorders complicating pregnancy, third trimester; F32.9 Major depressive disorder, single episode, unspecified; O99.52 Diseases of the respiratory system complicating childbirth; J45.909 Unspecified asthma, uncomplicated; O36.0990 Maternal care for other rhesus isoimmunization, unspecified trimester, not applicable or unspecified
CPT/HCPCS: 36415; 76816; 76816-26; 80053; 80305; 81001; 84112; 85025; 85027; 85460; 86850; 86900; 86901; 88307; 90686; 99211; A9270-GY; G0008; J0694; J1170; J2185; J2405; J2590; J2790; J3010; J7030; J7050; J7120; S0077

== ENCOUNTER 2018-03-01 15:25 | Emergency (ER) | payer BC, OTHER ==
[2018-03-01 17:17] VITALS: BP 121/65
--- NOTE | 2018-03-01 18:20 | EDM.PDOCBH ---
ED HPI GENERAL MEDICAL PROBLEM - General Chief Complaint: Behavioral/Psych Stated Complaint: SUICIDAL THOUGHTS/EVAL Time Seen by Provider: 03/01/18 18:00 Source of Information: Reports: Patient History Limitations: Reports: No Limitations - History of Present Illness INITIAL COMMENTS - FREE TEXT/NARRATIVE: 27-year-old female with a long history of depression, was maintaining on Paxil but got and was switched to Prozac. Her baby was born 7 months ago, she 's been struggling since and a week ago went back over on to Paxil again but felt very low today, having some suicidal ideation but no plan. Her depression is putting stress on her marriage. She went into the clinic but felt like she was worsening so came over to the emergency room. She is not drinking, she does not do street drugs and she does not think she would act through on any plan but she is just so depressed she feels something needs to be done soon. Onset: Unknown/Unsure Severity: Moderate Associated Symptoms: Reports: No Other Symptoms - Related Data Allergies Allergy/AdvReac Type Severity Reaction Status Date / Time Penicillins Allergy Hives Verified 03/04/17 15:16 Home Meds: Home Meds Albuterol [Ventolin HFA] 2 puff .ROUTE ASDIRECTED 11/08/16 [History] Fluticasone/Salmeterol [Advair Diskus 100-50] 1 puff INH DAILY 11/08/16 [History ] Acetaminophen [Tylenol] 650 mg PO Q4H PRN tablet 07/20/17 [Rx] Calcium Carbonate [Tums] 1,000 mg PO Q2H PRN tab.chew 07/20/17 [Rx] Ibuprofen [IJD: Ibuprofen] 600 mg PO Q6H PRN #56 tablet 07/20/17 [Rx] PARoxetine [Paxil] 30 mg PO DAILY 03/01/18 [History] Past Medical History - Past Health History Medical/Surgical History: Denies Medical/Surgical History Respiratory History: Reports: Asthma 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: Other OB/BYN History: EDC July 27 2017 Psychiatric History: Reports: Depression - Past Surgical History Respiratory Surgical History: Reports: None Female Surgical History: Reports: Section Social & Family History - Family History Family Medical History: Noncontributory - Tobacco Use Smoking Status *Q: Never Smoker - Caffeine Use Caffeine Use: Reports: Coffee, Soda, Tea Other Caffeine Use: 1 can daily - Recreational Drug Use Recreational Drug Use: No ED ROS GENERAL - Review of Systems Review Of Systems: See Below Constitutional: Denies: Fever, Chills Respiratory: Reports: Shortness of Breath (Occasional shortness of breath with her asthma, none currently) Cardiovascular: Denies: Chest Pain GI/Abdominal: Denies: Abdominal Pain, Nausea, Vomiting Skin: Reports: No Symptoms Neurological: Denies: Headache Psychiatric: Reports: Depression, Suicidal Ideation ED EXAM, BEHAVIORAL HEALTH - Physical Exam Exam: See Below Exam Limited By: No Limitations General Appearance: Alert, No Apparent Distress Head: Atraumatic Respiratory/Chest: No Respiratory Distress, Lungs Clear Cardiovascular: Regular Rate, Rhythm Neurological: Alert, Oriented x 3 Psychiatric: Depressed Mood, Flat Affect, Other (Becomes tearful at times) Skin Exam: Warm, Dry COURSE, BEHAVIORAL HEALTH COMP - Course Vital Signs: Last Vital Signs Temp 98.1 F 03/01/18 17:25 Pulse 83 03/01/18 17:25 Resp 16 03/01/18 17:25 BP 121/65 03/01/18 17:25 Pulse Ox 97 03/01/18 17:25 Orders, Labs, Meds: Laboratory Tests 03/01/18 03/01/18 Range/Units 18:24 18:24 WBC 8.8 (4.5-11.0) K/uL RBC 5.05 (3.30-5.50) M/uL Hgb 13.1 D (12.0-15.0) g/dL Hct 40.7 (36.0-48.0) % MCV 81 (80-98) fL MCH 26 L (27-31) pg MCHC 32 (32-36) % Plt Count 303 (150-400) K/uL Neut % (Auto) 58 (36-66) % Lymph % (Auto) 34 (24-44) % [place] % (Auto) 7 H (2-6) % Eos % (Auto) 2 (2-4) % Baso % (Auto) 0 (0-1) % Sodium 140 (140-148) mmol/L Potassium 4.2 (3.6-5.2) mmol/L Chloride 105 (100-108) mmol/L Carbon Dioxide 24 (21-32) mmol/L Anion Gap 11.0 (5.0-14.0) mmol/L BUN 10 (7-18) mg/dL Creatinine 0.8 (0.6-1.0) mg/dL Est Cr Clr Drug Dosing 95.89 mL/min Estimated GFR (MDRD) > 60 (>60) Glucose 88 (74-106) mg/dL Calcium 8.5 (8.5-10.1) mg/dL TSH, Ultra Sensitive 1.484 (0.358-3.740) uIU/mL Re-Assessment/Re-Exam: This patient is an ideal candidate for a crisis intervention as an outpatient. She has no outpatient help at this time. A CBC, BMP and TSH will be obtained. All of the patient's labs were normal. After a thorough evaluation by crisis intervention, the patient agreed to be admitted to the [facility] in [place] tomorrow. She felt safe going home. She was discharged with her . Departure - Departure Time of Disposition: 21:32 Disposition: Home, Self-Care 01 Condition: Good Clinical Impression: Depressive disorder - Discharge Information Instructions: Living With Depression Referrals: Ora Kumar CNM [Primary Care Provider] - Forms: ED Department Discharge Care Plan Goals: Follow through with plans as discussed with crisis intervention. Return sooner if worsening or concerns.
== END 2018-03-01 21:32 | disposition home or self-care (01) ==
LOC: JP.ED 15:25
DX: F32.9 Major depressive disorder, single episode, unspecified (principal); J45.909 Unspecified asthma, uncomplicated; Z88.0 Allergy status to penicillin; Z79.899 Other long term (current) drug therapy
CPT/HCPCS: 36415; 80048; 84443; 85025; 99284

== ENCOUNTER 2020-08-10 05:26 | Inpatient (IN) | payer BC ==
[2020-08-10] MEDS ORDERED: Scopolamine 1.5 MG Transdermal Patch TOP SCH (05:45)
[2020-08-10] MEDS ORDERED: Acetaminophen 500 MG Tab PO ONE (05:45)
[2020-08-10] MEDS ORDERED: Celecoxib 200 MG Cap PO ONE (05:45)
[2020-08-10] MEDS: Gabapentin 300 MG Cap PO ONE ×2 (05:53→11:37)
[2020-08-10] MEDS ORDERED: Dextrose 5%-Lactated Ringers 1,000 ML IV SCH ×2 (06:00→11:30)
[2020-08-10] MEDS ORDERED: cefOXitin 2 GM Vial ONE (06:50)
[2020-08-10] MEDS ORDERED: Rocuronium 50 MG/5 ML Vial ONE (07:13)
[2020-08-10] MEDS ORDERED: Neostigmine Methylsulfate 1 MG/ML 5 ML Syringe ONE (07:13)
[2020-08-10] MEDS ORDERED: Lactated Ringers 1,000 ML ONE (07:13)
[2020-08-10] MEDS ORDERED: Dexamethasone 4 MG/ML SDV ONE (07:13)
[2020-08-10] MEDS ORDERED: fentaNYL 250 MCG/5 ML SDV ONE ×2 (07:13→07:45)
[2020-08-10] MEDS ORDERED: Ondansetron 4 MG/2 ML SDV ONE (07:13)
[2020-08-10] MEDS ORDERED: Glycopyrrolate 0.2 MG/ML 5 ML MDV ONE (07:13)
[2020-08-10] MEDS ORDERED: Propofol 200 MG/20 ML SDV ONE (07:13)
[2020-08-10] MEDS ORDERED: Succinylcholine 200 MG/10 ML MDV ONE (07:13)
[2020-08-10] MEDS: cefOXitin 2 GM in Sodium Chloride 0.9% 50 ML IV ONE ×2 (07:18→11:37)
[2020-08-10] MEDS ORDERED: Magnesium Sulfate 5.5 GM in Sodium Chloride 0.9% 250 ML IV ONE (07:30)
[2020-08-10] MEDS ORDERED: Magnesium Sulfate 3.4 GM in Sodium Chloride 0.9% 100 ML IV SCH (07:30)
[2020-08-10] MEDS ORDERED: Ketamine 50 MG in Sodium Chloride 0.9% 49.5 ML IV SCH (07:30)
[2020-08-10] MEDS ORDERED: Ketamine 500 MG/5 ML MDV IV SCH (07:30)
[2020-08-10] MEDS ORDERED: Albuterol/Ipratropium 3.0-0.5 MG/3 ML Neb Soln NEB ONE (09:01)
[2020-08-10] MEDS ORDERED: hydrOXYzine HCL 100 MG/2 ML SDV IM ONE (09:24)
[2020-08-10] MEDS ORDERED: fentaNYL 100 MCG/2 ML SDV IVPUSH ONE (09:26)
[2020-08-10] MEDS ORDERED: Ondansetron 4 MG/2 ML SDV IVPUSH PRN ×3 (10:12→12:00)
[2020-08-10] MEDS ORDERED: Cyclobenzaprine 10 MG Tab PO PRN ×3 (10:12→11:30)
[2020-08-10] MEDS ORDERED: Calcium Gluconate 10% 1 GM/10 ML SDV IVPUSH PRN ×3 (10:12→12:00)
[2020-08-10] MEDS ORDERED: diphenhydrAMINE 50 MG/ML SDV IVPUSH PRN ×3 (10:12→12:00)
[2020-08-10] MEDS ORDERED: Labetalol 100 MG/20 ML MDV IVPUSH PRN ×2 (10:12→10:53)
[2020-08-10] MEDS ORDERED: hydrOXYzine HCL 100 MG/2 ML SDV IM PRN ×3 (10:12→12:00)
[2020-08-10] MEDS ORDERED: Metoclopramide 10 MG/2 ML SDV IV PRN ×2 (10:12→10:53)
[2020-08-10] MEDS ORDERED: Acetaminophen 500 MG Tab PO SCH ×2 (10:15→10:45)
[2020-08-10] MEDS: Acetaminophen 500 MG Tab PO SCH ×2 (11:52→19:14)
[2020-08-10] MEDS ORDERED: Albuterol/Ipratropium 3.0-0.5 MG/3 ML Neb Soln INH PRN (12:00)
[2020-08-10] MEDS ORDERED: HYDROmorphone 0.5 MG/0.5 ML Syringe IVPUSH PRN (12:00)
[2020-08-10] MEDS ORDERED: Metoclopramide 10 MG/2 ML SDV IVPUSH PRN (12:00)
[2020-08-10] MEDS ORDERED: Labetalol 20 MG/4 ML Syringe IVPUSH PRN (12:00)
[2020-08-10] MEDS ORDERED: Acetaminophen 500 MG Tab PO PRN (12:00)
[2020-08-10] MEDS ORDERED: HYDROmorphone 1 MG/ML Syringe IV PRN (12:00)
[2020-08-10] MEDS ORDERED: oxyCODONE 5 MG Tab PO PRN (12:00)
[2020-08-10] MEDS ORDERED: Gabapentin 250 MG/5 ML Solution ML 470 ML Bottle PO SCH (14:00)
[2020-08-10] MEDS ORDERED: MVI, Adult with Vitamin K 10 ML, Thiamine 200 MG, Chromium/Copper/Mang/Selen/Zn 1 ML in... IV SCH ×4 (16:00)
[2020-08-10] MEDS ORDERED: Pantoprazole 40 MG Vial IVPUSH SCH (16:00)
[2020-08-10] MEDS: cefOXitin 2 GM in Sodium Chloride 0.9% 50 ML IV SCH ×2 (16:07→22:05)
[2020-08-10] MEDS: Heparin Sodium 5,000 Units/ML Vial SUBCUT SCH (18:00)
[2020-08-11] MEDS ORDERED: Iopamidol 612 MG/ML 50 ML SDV PO ONE (03:21)
[2020-08-11] MEDS: cefOXitin 2 GM in Sodium Chloride 0.9% 50 ML IV SCH (03:22)
[2020-08-11] MEDS: Heparin Sodium 5,000 Units/ML Vial SUBCUT SCH ×2 (03:22→15:30)
[2020-08-11] MEDS: Acetaminophen 500 MG Tab PO SCH ×3 (03:22→20:15)
[2020-08-11] MEDS ORDERED: Celecoxib 200 MG Cap PO SCH ×2 (08:00)
[2020-08-11] MEDS ORDERED: Dextrose 5%-Lactated Ringers 1,000 ML IV SCH (08:15)
[2020-08-11] MEDS ORDERED: Pantoprazole 40 MG Vial IVPUSH SCH ×2 (09:00)
[2020-08-11] MEDS: PARoxetine 20 MG Tab PO SCH (09:48)
[2020-08-11] MEDS: Celecoxib 200 MG Cap PO SCH ×2 (09:49→20:15)
[2020-08-11] MEDS: SCOPOLAMINE PATCH CHECK TOP SCH (09:50)
[2020-08-11] MEDS ORDERED: MVI, Adult with Vitamin K 10 ML, Thiamine 200 MG, Chromium/Copper/Mang/Selen/Zn 1 ML in... IV SCH ×4 (16:00)
[2020-08-11] MEDS ORDERED: Pantoprazole 40 MG Delayed-Release Granules 1 Packet PO SCH (16:30)
[2020-08-12] MEDS: Acetaminophen 500 MG Tab PO SCH (04:36)
[2020-08-12] MEDS: Heparin Sodium 5,000 Units/ML Vial SUBCUT SCH (04:36)
[2020-08-12] MEDS ORDERED: Magnesium Hydroxide 400 MG/5 ML Susp 30 ML Cup PO PRN (07:38)
[2020-08-12 08:37] VITALS: BP 106/54; PULSE 73
[2020-08-12] MEDS: SCOPOLAMINE PATCH CHECK TOP SCH (08:39)
[2020-08-12] MEDS: PARoxetine 20 MG Tab PO SCH (08:40)
[2020-08-12] MEDS: Celecoxib 200 MG Cap PO SCH (08:40)
[2020-08-12] MEDS ORDERED: Cyanocobalamin (Vitamin B12) 1,000 MCG/ML SDV IM ONE (09:00)
--- NOTE | 2020-08-12 10:09 | PN ---
DATE OF SERVICE: 08/11/2020 The patient has been afebrile with stable vital signs status post sleeve gastrectomy yesterday. Clinically, she has done well. The oral intake is little bit marginal, but that should improve today. Otherwise, we will go up to a step-2 diet, maximize activity, and work with pulmonary toilet. Zak Delgadillo MD /[id number]
--- NOTE | 2020-08-12 10:55 | DISCH ---
FINAL DIAGNOSES: 1. Morbid obesity. 2. Marked hepatomegaly. 3. Paraesophageal diaphragmatic hernia associated with mediastinal lipoma. SECONDARY DIAGNOSES: 1. History of depression. 2. History of gastroesophageal reflux disease. 3. Polycystic ovary disease. OPERATIVE PROCEDURE: Done on 08/10/2020, diagnostic laparoscopy with: 1. Laparoscopic sleeve gastrectomy. 2. Leodan-Cut needle liver biopsy. 3. Repair of paraesophageal diaphragmatic hernia with mesh. 4. Excision of mediastinal lipoma. SUMMARY: This is a 30-year-old female presenting with longstanding morbid obesity with significant comorbidities. After preoperative evaluation and discussion, She wished to proceed with a sleeve gastrectomy which was done on the date of admission. The patient had significant paraesophageal hernia which was repaired with dissolvable mesh augmentation to provide somewhat more permanent crural repair. Postoperatively, no major problems were noted. She was tolerating a step-2 diet. She will be discharged home later today. She is being instructed to hold on her vitamins and other supplements until after the first appointment and will be remaining on a liquid diet for 1 month postoperatively. Follow up will be with Mariah Lundberg at [facility] on 08/20/2020. /[id number]
--- NOTE | 2020-08-13 09:03 | CR ---
UGI Limited HISTORY: Postbariatric surgery FINDINGS: Patient swallowed water-soluble contrast. Upright views of the abdomen show no evidence of extravasation or obstruction. There is a surgical drain in the left upper quadrant. IMPRESSION: Status post bariatric surgery No extravasation or obstruction seen
--- NOTE | 2020-08-20 12:16 | OR ---
DATE OF PROCEDURE: 08/10/2020 SURGEON: Zak Delgadillo MD PREOPERATIVE DIAGNOSIS: Morbid obesity. POSTOPERATIVE DIAGNOSES: 1. Morbid obesity. 2. Marked hepatomegaly. 3. Paraesophageal diaphragmatic hernia. 4. Mediastinal lipoma. OPERATIVE PROCEDURES: Diagnostic laparoscopy with: 1. Laparoscopic sleeve gastrectomy (23304). 2. Leodan-Cut needle liver biopsy (76617). 3. Repair of paraesophageal diaphragmatic hernia with mesh (13076). 4. Excision of mediastinal lipoma (04947). ANESTHESIA: General. CONSOLIDATION ACCOUNTANT: Mariah Lundberg PA-C INDICATIONS FOR PROCEDURE: This is a 30-year-old female presenting with longstanding morbid obesity and increasingly significant comorbidities. After preoperative evaluation and discussion, she wished to proceed with a sleeve gastrectomy. Potential risks including bleeding, infection, leaks from the staple line with possibility of cardiopulmonary, septic, or hemorrhagic complications leading to were discussed, and the patient wishes to proceed. DETAILS OF PROCEDURE: The patient was taken to the operating room, and after general endotracheal anesthesia was induced, placed in a lithotomy position and the abdomen prepped and draped 15 cm inferior and 5 cm left of the xiphoid process. Transverse incision was made and peritoneal cavity entered under direct vision with an Optiview trocar, inflated to 15 mmHg pressure with CO2. Laparoscope was reinserted. No underlying trocar insertion site injuries were seen. Following this, 5 additional trocars were placed across the upper and mid abdomen. Bilateral transversus abdominis plane blocks were placed. The patient was noted to have marked hepatomegaly with the liver being roughly 2 to 3 times normal size and grossly fatty infiltrated. Leodan-Cut needle biopsy was obtained from left lobe of the liver. Minimal bleeding from the biopsy site was controlled with electrocautery. At this point, the patient was noted to have a fairly large paraesophageal diaphragmatic hernia with prolapse of some gastric fundus, perigastric fat, and some omentum in a plane anterior to the course of the esophagus. This was reduced and peritoneum overlying incised and reflected downward. The crura were then from the distal esophagus bilaterally and the retrocrural dissection undertaken. Through the course of this dissection, mediastinal lipoma was encountered, and this was excised. Initial crural repair was accomplished with 0 Ethibond sutures reinforced with PTFE pledgets. Due to the size of the defect, this was additionally reinforced with some Phasix ST mesh being cut in a horseshoe type configuration and being placed over the crural repair and then along the sides of the crura where it was tacked with titanium tacking screws. At this point, the omentum was divided away from the greater curvature of the stomach up to including the highest and posterior short gastric vessels and then downward 0.2 cm proximal to the pylorus. At that point, the gastrectomy staple line was initiated with care taken to avoid overtightening of the area behind the incisura angularis. Once first 3 firings were undertaken with unreinforced BRUNO black loads, a 32-Macedonian suction tube was placed orally per Anesthesia and then positioned along the lesser curvature of the stomach where it was placed on suction. Remainder of the gastrectomy was then completed with that tube in place as a template along the lesser curvature using combination of reinforced black and reinforced purple loads. The stomach specimen was then taken off the side and retrieved through the left lateral trocar site. The staple line was then reinforced with fibrin sealant focusing on the area of the esophagogastric junction where some omentum was also tacked up into that area with some 3-0 Vicryl stitch. The tube was now taken off suction and injected while the gastrectomy staple line was submerged with antibiotic-containing saline solution. No leaks or signs of bleeding was seen, and at that point, trocars were sequentially removed. Peritoneal cavity deflated. Ben-Johnson drains were then placed with left lateral trocar site up into the area adjacent to the esophagogastric junction and from there into the splenic fossa, and the patient was taken to the recovery room in satisfactory condition. There were no evident complications. Physician pastry assistant, Mariah Lundberg, played an essential role in assisting in this case, helping to position the patient, retract structures as needed, as well as suturing and cutting sutures when indicated. Her presence improved patient safety and decreased operative time. Zak Delgadillo MD /[id number]
== END 2020-08-12 10:43 | disposition home or self-care (01) | DRG 403 ==
LOC: JP.SDS 05:26 → JP.MS 05:26 → EDSTATUS 07:30 → JP.MS 09:10
PROVIDERS: ADMIT Surgery; ATTEND Surgery
PROC: 0BUT4JZ Supplement Diaphragm with Synthetic Substitute, Percutaneous Endoscopic Approach (ICD-10-PCS; principal; 2020-08-10)
PROC: 0DB64Z3 Excision of Stomach, Percutaneous Endoscopic Approach, Vertical (ICD-10-PCS; principal; 2020-08-10)
PROC: 0FB24ZX Excision of Left Lobe Liver, Percutaneous Endoscopic Approach, Diagnostic (ICD-10-PCS; principal; 2020-08-10)
PROC: 0JB63ZZ Excision of Chest Subcutaneous Tissue and Fascia, Percutaneous Approach (ICD-10-PCS; principal; 2020-08-10)
DX: E66.01 Morbid (severe) obesity due to excess calories (principal); R16.0 Hepatomegaly, not elsewhere classified; K44.9 Diaphragmatic hernia without obstruction or gangrene; D17.4 Benign lipomatous neoplasm of intrathoracic organs; F32.9 Major depressive disorder, single episode, unspecified; K21.9 Gastro-esophageal reflux disease without esophagitis; E28.2 Polycystic ovarian syndrome; Z68.41 Body mass index [BMI] 40.0-44.9, adult
CPT/HCPCS: 36415; 74240; 74240-26; 80053; 81025; 83735; 84100; 85027; 86850; 86900; 86901; 88304; 88307; 88313; 93005; 93010; A9270-GY; C1713; C1781; C9113; J0171; J0330; J0694; J1100; J1644; J2405; J2704; J2710; J2795; J3010; J3410; J3411; J3420; J3475; J3490; J7050; J7120; J7121; J7620-GY; Q9967

== ENCOUNTER 2020-11-18 11:33 | Emergency (ER) | payer BC ==
[2020-11-18 11:54] VITALS: BP 110/52; PULSE 67
--- NOTE | 2020-11-18 12:14 | EDM.PDOC ---
ED HPI GENERAL MEDICAL PROBLEM - General Chief Complaint: Eye Problems Stated Complaint: SWOLLEN ITCHY EYES Time Seen by Provider: 11/18/20 12:00 Source of Information: Reports: Patient, Old Records History Limitations: Reports: No Limitations - History of Present Illness INITIAL COMMENTS - FREE TEXT/NARRATIVE: 30 yo female here with bilateral eye lid redness with itching and burning. Is not sure what is causing it. Sx's x 2 days. No hx of the same. 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: Other (see below) (topical Benedryl) - Related Data Allergies Allergy/AdvReac Type Severity Reaction Status Date / Time Penicillins Allergy Hives Verified 11/18/20 11:54 Home Meds: Home Meds PARoxetine [Paxil] 30 mg PO DAILY 03/01/18 [History] Ascorbic Acid [Vitamin C] 1 tab PO DAILY 08/10/20 [History] Cholecalciferol (Vitamin D3) [Vitamin D] 1 tab SL DAILY 08/10/20 [History] Cyanocobalamin (Vitamin B12) [Vitamin B12] 1 tab PO DAILY 08/10/20 [History] Ferrous Sulfate [Iron] 325 mg PO DAILY 08/10/20 [History] Multivitamin [Flintstones with Extra C] 1 tab PO DAILY 08/10/20 [History] Thiamine [Vitamin B-1] 1 tab PO DAILY 08/10/20 [History] Past Medical History - Past Health History Medical/Surgical History: Denies Medical/Surgical History HEENT History: Reports: Impaired Vision Other HEENT History: wears glasses Respiratory History: Reports: Asthma, Sleep Apnea Genitourinary History: Reports: None 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 ASSISTANT History: EDC July 27 2017 Psychiatric History: Reports: Depression Endocrine/Metabolic History: Reports: Obesity/BMI 30+ - Infectious Disease History Infectious Disease History: Reports: Chicken Pox - Past Surgical History HEENT Surgical History: Reports: None Respiratory Surgical History: Reports: None GI Surgical History: Reports: Bariatric Procedure Female Surgical History: Reports: Section Endocrine Surgical History: Reports: None Dermatological Surgical History: Reports: None Social & Family History - Family History Family Medical History: No Pertinent Family History Cardiac: Reports: CAD, [place] Respiratory: Reports: COPD GI: Reports: Other (See Below) Other GI Family History: non alcoholic liver cirrhosis OBGYN: Reports: Dysfunctional uterine bleeding - Tobacco Use Tobacco Use Status *Q: Never Tobacco User - Caffeine Use Caffeine Use: Reports: None Other Caffeine Use: 1 can daily ED ROS GENERAL - Review of Systems Review Of Systems: See Below Constitutional: Reports: No Symptoms HEENT: Reports: Other (bilateral eyelid burning/itching) Skin: Reports: Pruritis (lids), Erythema (lids only) ED EXAM GENERAL W FULL EYE - Physical Exam Exam: See Below Exam Limited By: No Limitations General Appearance: Alert, WD/WN, No Apparent Distress Eye Exam: Bilateral Eye: Normal Inspection, PERRL Eyelids: Bilateral: Erythema Conjunctiva & Sclera: Bilateral: Normal Appearance Extraocular Movements: Bilateral: Intact Pupillary Size: Bilateral: 2 mm Ears: Normal External Exam, Normal Canal, Hearing Grossly Normal Nose: Normal Inspection, No Blood Throat/Mouth: Normal Inspection, Normal Lips, Normal Oropharynx, Normal Voice, No Airway Compromise Head: Atraumatic, Normocephalic Neck: Normal Inspection Neurological: Alert, Oriented, CN II-XII Intact, Normal Cognition, No Motor/Sensory Deficits Psychiatric: Normal Affect, Normal Mood Skin Exam: Warm, Dry, Intact, Erythema (of lids bilaterally with slight lichenification, dry). No: Wound/Incision Course - Vital Signs Last Recorded V/S: Last Vital Signs Temp 36.5 C 11/18/20 11:59 Pulse 67 11/18/20 11:59 Resp 16 11/18/20 11:59 BP 110/52 L 11/18/20 11:59 Pulse Ox 100 11/18/20 11:59 Departure - Departure Time of Disposition: 12:12 Disposition: Home, Self-Care 01 Condition: Good Clinical Impression: Contact dermatitis of eyelids of both eyes - Discharge Information *PRESCRIPTION DRUG MONITORING PROGRAM REVIEWED*: Not Applicable *COPY OF PRESCRIPTION DRUG MONITORING REPORT IN PATIENT JAYME: Not Applicable Instructions: Contact Dermatitis, [id number] Referrals: Josefina Yoder MD [Primary Care Provider] - Additional Instructions: Apply 1% hydrocortisone cream to lids 2-3 times per day. Stop the topical Benedryl. No make up on your face and make sure you wash your hands before touching your eyes or eyelids. Recheck in the clinic later in the week. Sepsis Event Note (ED) - Evaluation Sepsis Screening Result: No Definite Risk - Focused Exam Vital Signs: Vital Signs Temp Pulse Resp BP Pulse Ox 11/18/20 11:59 36.5 C 67 16 110/52 L 100 11/18/20 11:52 36.5 C 67 16 110/52 L 100
== END 2020-11-18 12:22 | disposition home or self-care (01) ==
LOC: JP.ED 11:33
DX: L25.9 Unspecified contact dermatitis, unspecified cause (principal); J45.909 Unspecified asthma, uncomplicated; E66.9 Obesity, unspecified; Z68.34 Body mass index [BMI] 34.0-34.9, adult; Z88.0 Allergy status to penicillin
CPT/HCPCS: 99282; 99283

== ENCOUNTER 2021-09-02 06:59 | Day surgery (SDC) | payer BC ==
[2021-09-02] MEDS ORDERED: Midazolam 1 MG/ML 2 ML SDV ONE (07:38)
[2021-09-02] MEDS ORDERED: Propofol 200 MG/20 ML SDV ONE (07:38)
[2021-09-02] MEDS ORDERED: fentaNYL 100 MCG/2 ML SDV ONE (07:38)
[2021-09-02] MEDS ORDERED: Glycopyrrolate 0.2 MG/ML 2 ML SDV IVPUSH ONE (08:15)
[2021-09-02] MEDS ORDERED: Cyanocobalamin (Vitamin B12) 1,000 MCG/ML SDV IM ONE (08:15)
[2021-09-02] MEDS ORDERED: Lactated Ringers 1,000 ML IV SCH (08:15)
[2021-09-02 08:59] LABS: HEMOGLOBIN A1C 4.8 % (4.5-6.2)
[2021-09-02] MEDS ORDERED: MVI, Adult with Vitamin K 10 ML, Thiamine 200 MG, Zinc/Copper/Manganese/Selenium 1 ML i... IV ONE ×4 (09:15)
[2021-09-02 11:31] VITALS: BP 97/72; PULSE 67
--- NOTE | 2021-09-04 12:26 | OR ---
DATE OF PROCEDURE: 09/02/2021 SURGEON: Zak Delgadillo MD PREOPERATIVE DIAGNOSES: Epigastric pain and heartburn, status post sleeve gastrectomy. POSTOPERATIVE DIAGNOSES: Epigastric pain and heartburn, status post sleeve gastrectomy with: 1. Minimal gross inflammation at esophagogastric junction. 2. Patchy gastritis in antrum of stomach. OPERATIVE PROCEDURE: Esophagogastroduodenoscopy with antral biopsies for CLOtest. ANESTHESIA: IV sedation. 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 She was seen by Dr. Yoder on 08/01/2021. Started on omeprazole 40 mg a day. She thinks she sees some improvement with that, but not complete resolution of symptoms as of yet. The plan is to proceed with upper GI endoscopy with biopsies as indicated. Risks including bleeding and perforation were discussed, and the patient wishes to proceed. DETAILS OF PROCEDURE: The patient was taken to the operating room, placed in a left lateral decubitus position. IV sedation was administered, after which the upper GI endoscope was passed orally through the length of esophagus to the length of the stomach and thereafter through the pyloric sphincter and into the junction of the second and third portions of the duodenum. Findings included normal hypopharynx, larynx, and upper esophageal sphincter. Esophageal body was likewise unremarkable. There was perhaps somewhat widened opening at the esophagogastric junction. At the EG junction, there was no ulceration or bleeding noted and the amount of inflammation grossly appeared to be very minimal. Within the stomach, there was some retained bile present; and in the antrum, there were some patchy reddened areas without erosions or ulcers. Pyloric channel and visualized portions of the duodenum were unremarkable. At this point, biopsy obtained from the antrum and sent for CLOtest for H pylori. Minimal bleeding from the biopsy sites was seen and the procedure then concluded. The patient likewise is having some acid bile reflux into the esophagus, although there is not much in the way of gross inflammation present. This would certainly indicate that there are no symptoms in that regard and the antrum had some patchy gastritis as well with the CLOtest pending. The plan is to have the patient see Mariah Lundberg within 1 month. Mostly, at that point, will have all medical management as necessary. If the PPIs are not successful, one more option is to convert into a Ld-en-Y gastric bypass, which would alleviate the present symptoms. Zak Delgadillo MD Job #: [id number]
== END 2021-09-02 11:50 | disposition home or self-care (01) ==
LOC: JP.SDS 06:59
PROVIDERS: ATTEND Surgery
DX: K29.60 Other gastritis without bleeding (principal); K20.90 Esophagitis, unspecified without bleeding; G47.33 Obstructive sleep apnea (adult) (pediatric); Z88.0 Allergy status to penicillin
CPT/HCPCS: 43239; 80053; 82306; 82525; 82607; 82728; 82746; 83036; 83550; 83735; 84425; 84590; 84630; 84703; 85027; 87081; J2250; J2704; J3010; J3411; J3420; J3490; J7120